=== PATIENT | male | born 1960 | race Asian ===

== ENCOUNTER 2020-05-27 16:06 | Inpatient (IN) | payer OTHER ==
[2020-05-27] MEDS ORDERED: ACETAMINOPHEN 1000 MG/100 ML VIAL (NON FORMULARY) IVPB ONE (18:26)
[2020-05-27] MEDS ORDERED: SODIUM CHLORIDE 500 ML IV STA (18:29)
[2020-05-27] MEDS ORDERED: ACETAMINOPHEN INJECTION 100 ML IVPB ONE (18:54)
[2020-05-27] MEDS ORDERED: DEXAMETHASONE SOD PHOSPHATE 4 MG/1 ML VIAL IVPUSH ONE (19:37)
[2020-05-27] MEDS ORDERED: DEXAMETHASONE SOD PHOSPHATE 10 MG/1 ML VIAL ONE (19:41)
[2020-05-27 20:00] LABS: ACTIVATED PTT 26.3 SECONDS (25.2-36.5)
[2020-05-27 20:03] LABS: CHLORIDE 96 mmol/L (98-107); POTASSIUM 5.5 mmol/L (3.5-5.1); SODIUM 129 mmol/L (136-145)
[2020-05-27 20:06] LABS: CALCIUM 8.1 mg/dL (8.5-10.1); GLUCOSE,RANDOM 102 mg/dL (74-106)
[2020-05-27 20:07] LABS: ALBUMIN 3.1 g/dl (3.4-5.0); ANION GAP 10 MMOL/L (8-16); BLOOD UREA NITROGEN 12.6 mg/dL (7-18); CO2 23 mmol/L (21-32)
[2020-05-27 20:07] LABS: BASO % 0.2 % (0-2.0); HEMATOCRIT 40.3 % (35.4-49); HEMOGLOBIN 13.8 GM/dL (11.7-16.9); LYMPH % 13.1 % (8-40); MCH 29.4 pg (25.7-33.7); MCHC 34.2 g/dl (32.0-35.9); MEAN CELL VOLUME 86.1 fl (80-96); MEAN PLT VOLUME 9.1 fl (7.5-11.1); MONO % 11.4 % (3.8-10.2); NEUT % 75.3 % (42.8-82.8); PLATELET COUNT 155 K/MM3 (134-434); RBC 4.68 M/mm3 (4.00-5.60); RDW 12.4 % (11.9-15.9); WHITE BLOOD COUNT 6.3 K/mm3 (4.0-10.0)
[2020-05-27 20:09] LABS: SGOT/AST 402 U/L (15-37); SGPT/ALT 325 U/L (13-61)
[2020-05-27 20:10] LABS: BILIRUBIN,TOTAL 0.8 mg/dL (0.2-1); CREATININE 0.9 mg/dL (0.55-1.3)
[2020-05-27 20:11] LABS: ALK PHOS 114 U/L (45-117); TOT PROT 8.7 g/dl (6.4-8.2)
[2020-05-27 20:15] LABS: INR 1.08 (0.83-1.09); PROTHROMBIN TIME (PATIENT) 13.3 SEC (9.7-13.0)
[2020-05-27 20:19] LABS: LDH 994 U/L (87-246)
[2020-05-27 21:35] LABS: EPI CELLS 12 /uL (0-25.1); HYALINE CASTS 1 /uL (0-3.1); PH,URINE 6.5 (5.0-8.0); URINE APPEARANCE CLEAR; URINE BACTERIA 58 /uL (0-1359); URINE BILIRUBIN NEGATIVE (NEGATIVE); URINE COLOR YELLOW; URINE GLUCOSE (UA) NEGATIVE (NEGATIVE); URINE KETONE TRACE (NEGATIVE); URINE LEUK ESTERASE NEGATIVE (NEGATIVE); URINE NITRITE NEGATIVE (NEGATIVE); URINE PROTEIN 1+ (NEGATIVE); URINE RBC 27 /uL (0-23.9); URINE UROBILINOGEN 0.2 mg/dL (0.2-1.0); URINE WBC 8 /uL (0-25.8)
[2020-05-27] MEDS ORDERED: ASCORBIC ACID 500 MG TABLET (FP) ONE (23:01)
[2020-05-27] MEDS: ASCORBIC ACID 500 MG TABLET (FP) PO SCH (23:03)
[2020-05-27] MEDS ORDERED: CEFTRIAXONE 1 GM in DEXTROSE 5%-WATER - 50 ML IVPB SCH (23:25)
[2020-05-27] MEDS ORDERED: AZITHROMYCIN IVPB 500 MG in DEXTROSE 5%-WATER - 250 ML IVPB SCH (23:26)
[2020-05-27] MEDS ORDERED: ENOXAPARIN NA (PORCINE) 40 MG/0.4 ML DISP.SYRIN SQ ONE (23:36)
[2020-05-27] MEDS ORDERED: CEFTRIAXONE 1 GM/50 ML BAG ONE (23:36)
[2020-05-27] MEDS ORDERED: AZITHROMYCIN IVPB 500 MG/250 ML BAG IVPB ONE (23:37)
[2020-05-27] MEDS: ENOXAPARIN NA (PORCINE) 40 MG/0.4 ML DISP.SYRIN SQ SCH (23:59)
[2020-05-28] MEDS ORDERED: AZITHROMYCIN IVPB 500 MG/250 ML BAG IVPB SCH (00:24)
[2020-05-28] MEDS ORDERED: ZINC SULFATE 220 MG CAPSULE (FP) ONE ×2 (06:15→14:05)
[2020-05-28] MEDS: ZINC SULFATE 220 MG CAPSULE (FP) PO SCH ×3 (06:18→22:22)
[2020-05-28 06:40] LABS: CHLORIDE 105 mmol/L (98-107); POTASSIUM 4.2 mmol/L (3.5-5.1); SODIUM 137 mmol/L (136-145)
[2020-05-28 06:42] LABS: CALCIUM 7.8 mg/dL (8.5-10.1)
[2020-05-28 06:43] LABS: ALBUMIN 2.8 g/dl (3.4-5.0); ANION GAP 6 MMOL/L (8-16); BLOOD UREA NITROGEN 11.7 mg/dL (7-18); CO2 26 mmol/L (21-32); GLUCOSE,RANDOM 127 mg/dL (74-106); MAGNESIUM 2.3 mg/dL (1.8-2.4)
[2020-05-28 06:45] LABS: BASO % 0.2 % (0-2.0); HEMOGLOBIN 15.6 GM/dL (11.7-16.9); LYMPH % 17.1 % (8-40); MCH 29.6 pg (25.7-33.7); MCHC 34.6 g/dl (32.0-35.9); MEAN CELL VOLUME 85.3 fl (80-96); MEAN PLT VOLUME 9.3 fl (7.5-11.1); MONO % 10.3 % (3.8-10.2); NEUT % 72.4 % (42.8-82.8); PLATELET COUNT 167 K/MM3 (134-434); RBC 5.27 M/mm3 (4.00-5.60); RDW 12.8 % (11.9-15.9); WHITE BLOOD COUNT 6.3 K/mm3 (4.0-10.0)
[2020-05-28 06:46] LABS: CREATININE 0.7 mg/dL (0.55-1.3); INR 1.02 (0.83-1.09); PHOSPHOROUS 2.9 mg/dL (2.5-4.9); PROTHROMBIN TIME (PATIENT) 12.5 SEC (9.7-13.0); SGOT/AST 234 U/L (15-37); SGPT/ALT 267 U/L (13-61)
[2020-05-28 06:48] LABS: ACTIVATED PTT 39.5 SECONDS (25.2-36.5); BILIRUBIN,TOTAL 0.3 mg/dL (0.2-1)
[2020-05-28 06:49] LABS: ALK PHOS 102 U/L (45-117)
[2020-05-28 08:50] LABS: LDH 463 U/L (87-246)
[2020-05-28] MEDS ORDERED: ASCORBIC ACID 500 MG TABLET (FP) ONE (09:11)
[2020-05-28] MEDS ORDERED: ENOXAPARIN NA (PORCINE) 40 MG/0.4 ML DISP.SYRIN SQ ONE (09:12)
[2020-05-28] MEDS ORDERED: DEXAMETHASONE SOD PHOSPHATE 10 MG/1 ML VIAL ONE (09:12)
[2020-05-28] MEDS ORDERED: FAMOTIDINE 20 MG TABLET ONE (09:12)
[2020-05-28] MEDS ORDERED: CHOLECALCIFEROL (VIT D3) 1,000 UNIT (25 MCG) TABLET ONE (09:12)
[2020-05-28] MEDS: ENOXAPARIN NA (PORCINE) 40 MG/0.4 ML DISP.SYRIN SQ SCH (09:23)
[2020-05-28] MEDS: FAMOTIDINE 20 MG TABLET PO SCH ×2 (09:23→22:22)
[2020-05-28] MEDS: CHOLECALCIFEROL (VIT D3) 1,000 UNIT (25 MCG) TABLET PO SCH (09:23)
[2020-05-28] MEDS: DEXAMETHASONE SOD PHOSPHATE 4 MG/1 ML VIAL IVPUSH SCH (09:23)
[2020-05-28] MEDS: ASCORBIC ACID 500 MG TABLET (FP) PO SCH ×2 (09:23→22:13)
[2020-05-28] MEDS ORDERED: APIXABAN 5 MG TABLET ONE (16:08)
[2020-05-28] MEDS: APIXABAN 5 MG TABLET PO SCH ×2 (16:14→22:13)
[2020-05-28] MEDS ORDERED: DEXTROSE 5%-WATER - 50 ML IVPB ONE (21:07)
[2020-05-28] MEDS ORDERED: cefTRIAXone SODIUM 1 GM VIAL ONE (21:07)
[2020-05-28] MEDS: CEFTRIAXONE 1 GM in DEXTROSE 5%-WATER - 50 ML IVPB SCH (22:13)
[2020-05-28] MEDS: AZITHROMYCIN IVPB 500 MG/250 ML BAG IVPB SCH (22:55)
[2020-05-28] MEDS ORDERED: CHOLECALCIFEROL (VIT D3) 1,000 UNIT (25 MCG) TABLET PO ONE (23:00)
[2020-05-29] MEDS: ZINC SULFATE 220 MG CAPSULE (FP) PO SCH ×3 (06:10→22:00)
[2020-05-29] MEDS: DEXAMETHASONE SOD PHOSPHATE 4 MG/1 ML VIAL IVPUSH SCH (09:21)
[2020-05-29] MEDS: CHOLECALCIFEROL (VIT D3) 1,000 UNIT (25 MCG) TABLET PO SCH (09:21)
[2020-05-29] MEDS: ASCORBIC ACID 500 MG TABLET (FP) PO SCH ×2 (09:21→22:00)
[2020-05-29] MEDS: APIXABAN 5 MG TABLET PO SCH ×2 (09:21→22:00)
[2020-05-29] MEDS: FAMOTIDINE 20 MG TABLET PO SCH ×2 (09:21→22:00)
[2020-05-29 13:49] LABS: POTASSIUM 4.1 mmol/L (3.5-5.1)
[2020-05-29 13:55] LABS: ALBUMIN 2.6 g/dl (3.4-5.0)
[2020-05-29 13:56] LABS: BLOOD UREA NITROGEN 14.2 mg/dL (7-18); CALCIUM 8.1 mg/dL (8.5-10.1)
[2020-05-29 14:00] LABS: CREATININE 0.7 mg/dL (0.55-1.3)
[2020-05-29 14:01] LABS: BILIRUBIN,TOTAL 0.5 mg/dL (0.2-1)
[2020-05-29] MEDS ORDERED: REMDESIVIR 200 MG in SODIUM CHLORIDE 210 ML IVPB ONE (15:00)
[2020-05-29] MEDS ORDERED: DEXTROSE 5%-WATER - 50 ML IVPB ONE (20:53)
[2020-05-29] MEDS ORDERED: cefTRIAXone SODIUM 1 GM VIAL ONE (20:53)
[2020-05-29] MEDS: CEFTRIAXONE 1 GM in DEXTROSE 5%-WATER - 50 ML IVPB SCH (22:00)
[2020-05-29] MEDS: AZITHROMYCIN IVPB 500 MG/250 ML BAG IVPB SCH (22:01)
[2020-05-30] MEDS: ZINC SULFATE 220 MG CAPSULE (FP) PO SCH ×3 (05:41→21:12)
[2020-05-30] MEDS: CHOLECALCIFEROL (VIT D3) 1,000 UNIT (25 MCG) TABLET PO SCH (09:49)
[2020-05-30] MEDS: ASCORBIC ACID 500 MG TABLET (FP) PO SCH ×2 (09:49→21:11)
[2020-05-30] MEDS: APIXABAN 5 MG TABLET PO SCH ×2 (09:49→21:11)
[2020-05-30] MEDS: FAMOTIDINE 20 MG TABLET PO SCH ×2 (09:49→21:12)
[2020-05-30] MEDS: DEXAMETHASONE SOD PHOSPHATE 4 MG/1 ML VIAL IVPUSH SCH (10:32)
[2020-05-30] MEDS: REMDESIVIR 100 MG in SODIUM CHLORIDE 230 ML IVPB SCH (15:40)
[2020-05-30] MEDS ORDERED: cefTRIAXone SODIUM 1 GM VIAL ONE (20:40)
[2020-05-30] MEDS ORDERED: DEXTROSE 5%-WATER - 50 ML IVPB ONE (20:41)
[2020-05-30] MEDS: CEFTRIAXONE 1 GM in DEXTROSE 5%-WATER - 50 ML IVPB SCH (21:12)
[2020-05-30] MEDS: AZITHROMYCIN IVPB 500 MG/250 ML BAG IVPB SCH (21:13)
[2020-05-31] MEDS: ZINC SULFATE 220 MG CAPSULE (FP) PO SCH ×3 (05:13→21:01)
[2020-05-31 07:58] LABS: HEMATOCRIT 41.3 % (35.4-49); MCH 29.2 pg (25.7-33.7); MEAN CELL VOLUME 85.8 fl (80-96); MEAN PLT VOLUME 8.9 fl (7.5-11.1); PLATELET COUNT 274 K/MM3 (134-434); RBC 4.81 M/mm3 (4.00-5.60); RDW 12.6 % (11.9-15.9); WHITE BLOOD COUNT 11.3 K/mm3 (4.0-10.0)
[2020-05-31 08:11] LABS: POTASSIUM 4.4 mmol/L (3.5-5.1)
[2020-05-31 08:16] LABS: BLOOD UREA NITROGEN 21.7 mg/dL (7-18)
[2020-05-31 08:19] LABS: CALCIUM 8.2 mg/dL (8.5-10.1)
[2020-05-31 08:20] LABS: ALBUMIN 2.4 g/dl (3.4-5.0); MAGNESIUM 2.4 mg/dL (1.8-2.4)
[2020-05-31 08:21] LABS: TOT PROT 6.5 g/dl (6.4-8.2)
[2020-05-31 08:22] LABS: BILIRUBIN,TOTAL 0.4 mg/dL (0.2-1)
[2020-05-31 08:23] LABS: BILIRUBIN,DIRECT 0.2 mg/dL (0.0-0.2); CREATININE 0.6 mg/dL (0.55-1.3); PHOSPHOROUS 3.2 mg/dL (2.5-4.9)
[2020-05-31] MEDS: DEXAMETHASONE SOD PHOSPHATE 4 MG/1 ML VIAL IVPUSH SCH (09:30)
[2020-05-31] MEDS: APIXABAN 5 MG TABLET PO SCH ×2 (09:30→21:01)
[2020-05-31] MEDS: ASCORBIC ACID 500 MG TABLET (FP) PO SCH ×2 (09:30→21:01)
[2020-05-31] MEDS: CHOLECALCIFEROL (VIT D3) 1,000 UNIT (25 MCG) TABLET PO SCH (09:31)
[2020-05-31] MEDS: FAMOTIDINE 20 MG TABLET PO SCH ×2 (09:31→21:01)
[2020-05-31] MEDS: REMDESIVIR 100 MG in SODIUM CHLORIDE 230 ML IVPB SCH (14:50)
[2020-05-31] MEDS ORDERED: cefTRIAXone SODIUM 1 GM VIAL ONE (20:28)
[2020-05-31] MEDS ORDERED: DEXTROSE 5%-WATER - 50 ML IVPB ONE (20:29)
[2020-05-31] MEDS: CEFTRIAXONE 1 GM in DEXTROSE 5%-WATER - 50 ML IVPB SCH (21:00)
[2020-06-01] MEDS: ZINC SULFATE 220 MG CAPSULE (FP) PO SCH ×3 (05:17→21:24)
[2020-06-01] MEDS ORDERED: PT OWN MED DRAWER 7, Y5N ONE ×3 (09:16→16:38)
[2020-06-01] MEDS: FAMOTIDINE 20 MG TABLET PO SCH ×2 (09:21→21:24)
[2020-06-01] MEDS: APIXABAN 5 MG TABLET PO SCH ×2 (09:21→21:24)
[2020-06-01] MEDS: ASCORBIC ACID 500 MG TABLET (FP) PO SCH ×2 (09:21→21:23)
[2020-06-01] MEDS: CHOLECALCIFEROL (VIT D3) 1,000 UNIT (25 MCG) TABLET PO SCH (09:21)
[2020-06-01] MEDS: DEXAMETHASONE SOD PHOSPHATE 4 MG/1 ML VIAL IVPUSH SCH (09:21)
[2020-06-01 09:26] LABS: BASO % 0.1 % (0-2.0); HEMATOCRIT 43.1 % (35.4-49); HEMOGLOBIN 14.6 GM/dL (11.7-16.9); LYMPH % 8.4 % (8-40); MCH 29.6 pg (25.7-33.7); MEAN PLT VOLUME 8.4 fl (7.5-11.1); MONO % 11.7 % (3.8-10.2); NEUT % 79.8 % (42.8-82.8); PLATELET COUNT 349 K/MM3 (134-434); RBC 4.95 M/mm3 (4.00-5.60); RDW 12.8 % (11.9-15.9); WHITE BLOOD COUNT 17.2 K/mm3 (4.0-10.0)
[2020-06-01 09:46] LABS: POTASSIUM 4.2 mmol/L (3.5-5.1)
[2020-06-01 09:50] LABS: ALBUMIN 2.6 g/dl (3.4-5.0); CALCIUM 8.1 mg/dL (8.5-10.1)
[2020-06-01 09:53] LABS: CREATININE 0.6 mg/dL (0.55-1.3)
[2020-06-01 09:55] LABS: BILIRUBIN,TOTAL 0.7 mg/dL (0.2-1); TOT PROT 6.7 g/dl (6.4-8.2)
[2020-06-01] MEDS: REMDESIVIR 100 MG in SODIUM CHLORIDE 230 ML IVPB SCH (14:36)
[2020-06-01] MEDS ORDERED: DEXTROSE 5%-WATER - 50 ML IVPB ONE (21:13)
[2020-06-01] MEDS ORDERED: cefTRIAXone SODIUM 1 GM VIAL ONE (21:13)
[2020-06-01] MEDS: CEFTRIAXONE 1 GM in DEXTROSE 5%-WATER - 50 ML IVPB SCH (21:24)
[2020-06-02] MEDS: ZINC SULFATE 220 MG CAPSULE (FP) PO SCH ×3 (06:14→21:48)
[2020-06-02 08:25] LABS: BASO % 0.1 % (0-2.0); EOS % 0.1 % (0-4.5); HEMATOCRIT 42.8 % (35.4-49); HEMOGLOBIN 14.4 GM/dL (11.7-16.9); LYMPH % 9.5 % (8-40); MCH 29.4 pg (25.7-33.7); MCHC 33.6 g/dl (32.0-35.9); MEAN CELL VOLUME 87.5 fl (80-96); MEAN PLT VOLUME 8.6 fl (7.5-11.1); MONO % 13.4 % (3.8-10.2); NEUT % 76.9 % (42.8-82.8); PLATELET COUNT 359 K/MM3 (134-434); RBC 4.89 M/mm3 (4.00-5.60); RDW 12.7 % (11.9-15.9); WHITE BLOOD COUNT 11.9 K/mm3 (4.0-10.0)
[2020-06-02 08:44] LABS: POTASSIUM 4.3 mmol/L (3.5-5.1)
[2020-06-02 08:53] LABS: ALBUMIN 2.4 g/dl (3.4-5.0); BLOOD UREA NITROGEN 22.4 mg/dL (7-18)
[2020-06-02 08:57] LABS: BILIRUBIN,TOTAL 0.5 mg/dL (0.2-1); CREATININE 0.6 mg/dL (0.55-1.3); TOT PROT 6.3 g/dl (6.4-8.2)
[2020-06-02] MEDS: APIXABAN 5 MG TABLET PO SCH ×2 (10:05→21:48)
[2020-06-02] MEDS: FAMOTIDINE 20 MG TABLET PO SCH ×2 (10:06→21:49)
[2020-06-02] MEDS: CHOLECALCIFEROL (VIT D3) 1,000 UNIT (25 MCG) TABLET PO SCH (10:06)
[2020-06-02] MEDS: DEXAMETHASONE SOD PHOSPHATE 4 MG/1 ML VIAL IVPUSH SCH (10:06)
[2020-06-02] MEDS: ASCORBIC ACID 500 MG TABLET (FP) PO SCH ×2 (10:06→21:48)
[2020-06-02] MEDS ORDERED: PT OWN MED DRAWER 7, Y5N ONE ×2 (14:05→15:08)
[2020-06-02] MEDS: REMDESIVIR 100 MG in SODIUM CHLORIDE 230 ML IVPB SCH (14:32)
[2020-06-03] MEDS: ZINC SULFATE 220 MG CAPSULE (FP) PO SCH ×3 (05:32→21:44)
[2020-06-03 08:38] LABS: HEMATOCRIT 43.1 % (35.4-49); HEMOGLOBIN 14.7 GM/dL (11.7-16.9); MCH 29.7 pg (25.7-33.7); MCHC 34.1 g/dl (32.0-35.9); MEAN PLT VOLUME 8.4 fl (7.5-11.1); PLATELET COUNT 370 K/MM3 (134-434); RBC 4.95 M/mm3 (4.00-5.60); RDW 12.9 % (11.9-15.9); WHITE BLOOD COUNT 11.2 K/mm3 (4.0-10.0)
[2020-06-03 08:55] LABS: POTASSIUM 4.5 mmol/L (3.5-5.1)
[2020-06-03 09:02] LABS: ALBUMIN 2.5 g/dl (3.4-5.0); BLOOD UREA NITROGEN 25.2 mg/dL (7-18); CALCIUM 8.3 mg/dL (8.5-10.1)
[2020-06-03 09:05] LABS: CREATININE 0.6 mg/dL (0.55-1.3)
[2020-06-03 09:06] LABS: BILIRUBIN,TOTAL 0.8 mg/dL (0.2-1); TOT PROT 6.3 g/dl (6.4-8.2)
[2020-06-03] MEDS ORDERED: PT OWN MED DRAWER 7, Y5N ONE (09:54)
[2020-06-03] MEDS: APIXABAN 5 MG TABLET PO SCH ×2 (10:11→21:43)
[2020-06-03] MEDS: FAMOTIDINE 20 MG TABLET PO SCH ×2 (10:12→21:44)
[2020-06-03] MEDS: CHOLECALCIFEROL (VIT D3) 1,000 UNIT (25 MCG) TABLET PO SCH (10:12)
[2020-06-03] MEDS: ASCORBIC ACID 500 MG TABLET (FP) PO SCH ×2 (10:12→21:43)
[2020-06-03] MEDS: DEXAMETHASONE SOD PHOSPHATE 4 MG/1 ML VIAL IVPUSH SCH (10:12)
[2020-06-03 18:52] VITALS: BMI 22.4
[2020-06-04] MEDS: ZINC SULFATE 220 MG CAPSULE (FP) PO SCH ×3 (05:06→21:48)
[2020-06-04 08:54] LABS: HEMATOCRIT 44.4 % (35.4-49); MCH 29.4 pg (25.7-33.7); MCHC 33.8 g/dl (32.0-35.9); MEAN CELL VOLUME 86.9 fl (80-96); MEAN PLT VOLUME 8.1 fl (7.5-11.1); PLATELET COUNT 429 K/MM3 (134-434); RBC 5.11 M/mm3 (4.00-5.60); WHITE BLOOD COUNT 11.6 K/mm3 (4.0-10.0)
[2020-06-04 09:16] LABS: POTASSIUM 4.3 mmol/L (3.5-5.1)
[2020-06-04 09:18] LABS: CALCIUM 8.2 mg/dL (8.5-10.1)
[2020-06-04 09:19] LABS: ALBUMIN 2.4 g/dl (3.4-5.0); BLOOD UREA NITROGEN 27.2 mg/dL (7-18)
[2020-06-04 09:22] LABS: CREATININE 0.7 mg/dL (0.55-1.3)
[2020-06-04 09:23] LABS: BILIRUBIN,TOTAL 0.7 mg/dL (0.2-1); TOT PROT 6.2 g/dl (6.4-8.2)
[2020-06-04] MEDS: APIXABAN 5 MG TABLET PO SCH ×2 (09:45→21:48)
[2020-06-04] MEDS: CHOLECALCIFEROL (VIT D3) 1,000 UNIT (25 MCG) TABLET PO SCH (09:46)
[2020-06-04] MEDS: FAMOTIDINE 20 MG TABLET PO SCH ×2 (09:46→21:47)
[2020-06-04] MEDS: ASCORBIC ACID 500 MG TABLET (FP) PO SCH ×2 (09:46→21:47)
[2020-06-04] MEDS: DEXAMETHASONE SOD PHOSPHATE 4 MG/1 ML VIAL IVPUSH SCH (09:46)
[2020-06-05] MEDS: ZINC SULFATE 220 MG CAPSULE (FP) PO SCH ×3 (06:09→21:36)
[2020-06-05] MEDS: CHOLECALCIFEROL (VIT D3) 1,000 UNIT (25 MCG) TABLET PO SCH (09:42)
[2020-06-05] MEDS: ASCORBIC ACID 500 MG TABLET (FP) PO SCH ×2 (09:42→21:36)
[2020-06-05] MEDS: APIXABAN 5 MG TABLET PO SCH ×2 (09:42→21:36)
[2020-06-05] MEDS: DEXAMETHASONE SOD PHOSPHATE 4 MG/1 ML VIAL IVPUSH SCH (09:43)
[2020-06-05] MEDS: FAMOTIDINE 20 MG TABLET PO SCH ×2 (09:43→21:36)
[2020-06-06] MEDS: ZINC SULFATE 220 MG CAPSULE (FP) PO SCH ×3 (05:42→22:50)
[2020-06-06] MEDS: DEXAMETHASONE SOD PHOSPHATE 4 MG/1 ML VIAL IVPUSH SCH (09:16)
[2020-06-06] MEDS: CHOLECALCIFEROL (VIT D3) 1,000 UNIT (25 MCG) TABLET PO SCH (09:16)
[2020-06-06] MEDS: APIXABAN 5 MG TABLET PO SCH ×2 (09:16→22:50)
[2020-06-06] MEDS: FAMOTIDINE 20 MG TABLET PO SCH ×2 (09:17→22:50)
[2020-06-06] MEDS: ASCORBIC ACID 500 MG TABLET (FP) PO SCH ×2 (09:17→22:50)
[2020-06-07] MEDS: ZINC SULFATE 220 MG CAPSULE (FP) PO SCH ×3 (06:17→21:06)
[2020-06-07 08:22] LABS: BASO % 0.1 % (0-2.0); EOS % 0.2 % (0-4.5); HEMATOCRIT 44.8 % (35.4-49); HEMOGLOBIN 14.9 GM/dL (11.7-16.9); LYMPH % 10.5 % (8-40); MCH 29.4 pg (25.7-33.7); MCHC 33.2 g/dl (32.0-35.9); MEAN CELL VOLUME 88.5 fl (80-96); MEAN PLT VOLUME 8.2 fl (7.5-11.1); MONO % 13.1 % (3.8-10.2); NEUT % 76.1 % (42.8-82.8); PLATELET COUNT 366 K/MM3 (134-434); RBC 5.06 M/mm3 (4.00-5.60); RDW 13.2 % (11.9-15.9)
[2020-06-07 08:44] LABS: POTASSIUM 4.2 mmol/L (3.5-5.1)
[2020-06-07 08:46] LABS: CALCIUM 7.9 mg/dL (8.5-10.1)
[2020-06-07 08:47] LABS: ALBUMIN 2.5 g/dl (3.4-5.0); BLOOD UREA NITROGEN 25.9 mg/dL (7-18)
[2020-06-07 08:50] LABS: CREATININE 0.7 mg/dL (0.55-1.3)
[2020-06-07 08:52] LABS: BILIRUBIN,TOTAL 1.2 mg/dL (0.2-1); TOT PROT 6.2 g/dl (6.4-8.2)
[2020-06-07] MEDS: APIXABAN 5 MG TABLET PO SCH ×2 (08:59→21:06)
[2020-06-07] MEDS: DEXAMETHASONE SOD PHOSPHATE 4 MG/1 ML VIAL IVPUSH SCH (08:59)
[2020-06-07] MEDS: ASCORBIC ACID 500 MG TABLET (FP) PO SCH ×2 (08:59→21:05)
[2020-06-07] MEDS: CHOLECALCIFEROL (VIT D3) 1,000 UNIT (25 MCG) TABLET PO SCH (08:59)
[2020-06-07] MEDS: FAMOTIDINE 20 MG TABLET PO SCH ×2 (09:00→21:05)
[2020-06-08] MEDS: ZINC SULFATE 220 MG CAPSULE (FP) PO SCH ×3 (05:33→21:27)
[2020-06-08 09:01] LABS: HEMOGLOBIN 14.5 GM/dL (11.7-16.9)
[2020-06-08] MEDS: ASCORBIC ACID 500 MG TABLET (FP) PO SCH ×2 (09:03→21:28)
[2020-06-08] MEDS: CHOLECALCIFEROL (VIT D3) 1,000 UNIT (25 MCG) TABLET PO SCH (09:03)
[2020-06-08] MEDS: DEXAMETHASONE SOD PHOSPHATE 4 MG/1 ML VIAL IVPUSH SCH (09:04)
[2020-06-08] MEDS: FAMOTIDINE 20 MG TABLET PO SCH ×2 (09:04→21:28)
[2020-06-08] MEDS: APIXABAN 5 MG TABLET PO SCH ×2 (09:04→21:27)
[2020-06-08 09:05] LABS: BASO % 0.3 % (0-2.0); EOS % 0.1 % (0-4.5); HEMATOCRIT 43.5 % (35.4-49); LYMPH % 9.5 % (8-40); MCH 29.1 pg (25.7-33.7); MCHC 33.2 g/dl (32.0-35.9); MEAN CELL VOLUME 87.5 fl (80-96); MEAN PLT VOLUME 7.8 fl (7.5-11.1); MONO % 11.3 % (3.8-10.2); NEUT % 78.8 % (42.8-82.8); PLATELET COUNT 333 K/MM3 (134-434); RBC 4.97 M/mm3 (4.00-5.60); RDW 12.9 % (11.9-15.9); WHITE BLOOD COUNT 14.6 K/mm3 (4.0-10.0)
[2020-06-08 09:27] LABS: POTASSIUM 4.2 mmol/L (3.5-5.1)
[2020-06-08 09:32] LABS: BLOOD UREA NITROGEN 23.8 mg/dL (7-18)
[2020-06-08 09:34] LABS: ALBUMIN 2.4 g/dl (3.4-5.0)
[2020-06-08 09:35] LABS: CALCIUM 8.1 mg/dL (8.5-10.1)
[2020-06-08 09:36] LABS: MAGNESIUM 2.4 mg/dL (1.8-2.4)
[2020-06-08 09:38] LABS: CREATININE 0.6 mg/dL (0.55-1.3); PHOSPHOROUS 3.2 mg/dL (2.5-4.9)
[2020-06-08 09:39] LABS: BILIRUBIN,TOTAL 1.2 mg/dL (0.2-1); TOT PROT 5.8 g/dl (6.4-8.2)
[2020-06-08 09:41] LABS: LDH 196 U/L (87-246)
[2020-06-08 21:08] LABS: HEP B CORE AB, TOT Negative (Negative)
[2020-06-09] MEDS: ZINC SULFATE 220 MG CAPSULE (FP) PO SCH (06:17)
[2020-06-09] MEDS ORDERED: PT OWN MED DRAWER 7, Y5N ONE (07:57)
[2020-06-09] MEDS: DEXAMETHASONE SOD PHOSPHATE 4 MG/1 ML VIAL IVPUSH SCH (09:31)
[2020-06-09] MEDS: FAMOTIDINE 20 MG TABLET PO SCH (09:32)
[2020-06-09] MEDS: CHOLECALCIFEROL (VIT D3) 1,000 UNIT (25 MCG) TABLET PO SCH (09:33)
[2020-06-09] MEDS: ASCORBIC ACID 500 MG TABLET (FP) PO SCH (09:33)
[2020-06-09] MEDS: APIXABAN 5 MG TABLET PO SCH (09:33)
[2020-06-09 09:51] LABS: BASO % 0.2 % (0-2.0); EOS % 0.1 % (0-4.5); HEMATOCRIT 43.9 % (35.4-49); HEMOGLOBIN 14.5 GM/dL (11.7-16.9); LYMPH % 10.7 % (8-40); MCH 29.4 pg (25.7-33.7); MCHC 33.1 g/dl (32.0-35.9); MEAN CELL VOLUME 88.7 fl (80-96); MEAN PLT VOLUME 8.5 fl (7.5-11.1); MONO % 11.6 % (3.8-10.2); NEUT % 77.4 % (42.8-82.8); PLATELET COUNT 314 K/MM3 (134-434); RBC 4.95 M/mm3 (4.00-5.60); RDW 13.1 % (11.9-15.9); WHITE BLOOD COUNT 17.3 K/mm3 (4.0-10.0)
[2020-06-09 10:11] LABS: POTASSIUM 4.1 mmol/L (3.5-5.1)
[2020-06-09 10:13] LABS: CALCIUM 8.1 mg/dL (8.5-10.1)
[2020-06-09 10:14] LABS: ALBUMIN 2.6 g/dl (3.4-5.0); BLOOD UREA NITROGEN 18.5 mg/dL (7-18); MAGNESIUM 2.5 mg/dL (1.8-2.4)
[2020-06-09 10:16] LABS: CREATININE 0.6 mg/dL (0.55-1.3)
[2020-06-09 10:17] LABS: PHOSPHOROUS 3.1 mg/dL (2.5-4.9)
[2020-06-09 10:18] LABS: BILIRUBIN,TOTAL 1.3 mg/dL (0.2-1); TOT PROT 6.2 g/dl (6.4-8.2)
[2020-06-09 14:37] VITALS: BP 112/78; PULSE 85; TEMP 97.9
[2020-06-10] MEDS ORDERED: ZINC SULFATE 220 MG CAPSULE (FP) PO SCH (10:00)
== END 2020-06-09 16:24 | disposition home or self-care (01) | DRG 177 ==
LOC: JER 16:06 → JERBED 21:51 → J8W 05-28 20:56
PROVIDERS: ADMIT Internal Medicine; ATTEND Internal Medicine
PROC: 8E0ZXY6 Isolation (ICD-10-PCS; 2020-05-27)
PROC: XW13325 Transfusion of Convalescent Plasma (Nonautologous) into Peripheral Vein, Percutaneous Approach, New Technology Group 5 (ICD-10-PCS; principal; 2020-05-28)
PROC: XW033E5 Introduction of Remdesivir Anti-infective into Peripheral Vein, Percutaneous Approach, New Technology Group 5 (ICD-10-PCS; 2020-05-29)
DX: U07.1 COVID-19 (principal); J96.01 Acute respiratory failure with hypoxia; J12.82 Pneumonia due to coronavirus disease 2019; B17.9 Acute viral hepatitis, unspecified; E87.1 Hypo-osmolality and hyponatremia; I48.91 Unspecified atrial fibrillation; R74.01 Elevation of levels of liver transaminase levels; D72.829 Elevated white blood cell count, unspecified
CPT/HCPCS: 36415; 36430; 71045-TC-FY; 71275-TC; 80048; 80053; 80061; 80076; 81003; 82550; 82553; 82728; 83605; 83615; 83721; 83735; 83880; 83930; 83935; 84100; 84300; 84443; 84484; 85025; 85027; 85379; 85384; 85610; 85730; 86140; 86704; 86706; 86707; 86708; 86709; 86850; 86900; 86901; 87040; 87086; 87340; 87522; 93005; 93010; 93306-TC; 94761; 99285-25; C9399; C9803; J0131; P9017; Q9967; U0003